=== PATIENT | female | born 2000 | race African-American/Black ===

== ENCOUNTER 2018-10-08 13:23 | Emergency (ER) | payer SELFPAY ==
[~2018-10-08] VITALS: Ht 165.1 cm; Wt 77.1 kg
[2018-10-08 13:30] VITALS: BP 127/84
--- NOTE | 2018-10-08 13:30 | NUR ---
ED Nurse Note: Patient ambulated in to ER from home due to dizziness, N/V but no D since this morning. pt is not having vomiting at this moment. Patient alert and oriented x4 and ambulatory. Skin clean and intact. Calm and cooperative. No acute distress noted at this time.
[2018-10-08] MEDS ORDERED: NKM (13:36)
[2018-10-08] MEDS ORDERED: Metoclopramide 10mg/2ml Inj IVP ONE (14:00)
[2018-10-08 14:24] LABS: APPEARANCE,URINE SLIGHTLY CLOUDY; BILIRUBIN, URINE NEGATIVE (NEGATIVE); GLUCOSE, URINE (UA) NEGATIVE (NEGATIVE); KETONES,URINE 1+ (NEGATIVE); LEUKOCYTE ESTERASE ,URINE 1+ (NEGATIVE); NITRITE,URINE POSITIVE (NEGATIVE); PH,URINE 6 (4.5-8.0); PROTEIN,URINE 2+ (NEGATIVE); UROBILINOGEN,URINE 1 MG/DL (0.0-1.0)
[2018-10-08 14:26] LABS: BASOPHILS % (AUTO) 0.7 % (0.0-2.0); COLOR,URINE YELLOW; EOSINOPHILS % (AUTO) 0.6 % (0.0-3.0); HEMATOCRIT 36.7 % (37.0-47.0); HEMOGLOBIN 11.7 G/DL (12.0-16.0); LYMPHOCYTES % (AUTO) 25.5 % (20.0-45.0); MEAN CORPUSCULAR VOLUME 90 FL (80-99); MONOCYTES % (AUTO) 13.9 % (1.0-10.0); NEUTROPHILS % (AUTO) 59.3 % (45.0-75.0); PLATELET COUNT 232 K/UL (150-450); RED BLOOD COUNT 4.06 M/UL (4.20-5.40); RED CELL DISTRIBUTION WIDTH 13.2 % (11.6-14.8); WHITE BLOOD COUNT 6.1 K/UL (4.8-10.8)
[2018-10-08 14:45] LABS: ANION GAP 7 mmol/L (5-15); BLOOD UREA NITROGEN 12 mg/dL (7-18); CALCIUM 8.6 MG/DL (8.5-10.1); CARBON DIOXIDE 27 MMOL/L (21-32); CHLORIDE 107 MMOL/L (98-107); CREATININE 0.8 MG/DL (0.55-1.30); POTASSIUM 3.6 MMOL/L (3.5-5.1); SODIUM 140 MMOL/L (136-145)
[2018-10-08 14:50] LABS: ALANINE AMINOTRANSFERASE 12 U/L (12-78); ALBUMIN 3.5 G/DL (3.4-5.0); ALKALINE PHOSPHATASE 57 U/L (46-116); ASPARTATE AMINO TRANSFERASE 13 U/L (15-37); BILIRUBIN,TOTAL 0.3 MG/DL (0.2-1.0)
--- NOTE | 2018-10-08 14:57 | Emergency Room Report ---
History of Present Illness General Chief Complaint: Vomiting Source: Patient Present Illness HPI 17-year-old female with no significant past medical history here complaining of 1 day of multiple bouts of nonbloody emesis, and epigastric pain. Denies diarrhea and constipation. Denies fever and chills, denies exposure to any new food or alcohol intake. Denies drug use. Complains of urinary frequency however denies dysuria and hematuria. Last menstrual period was over a month ago raises concerns about possible . Patient does not use any control. Denies chest pain, shortness of breath, palpitation, and all other associated symptoms. Has not taken medication for symptom relief. Allergies: Coded Allergies: No Known Allergies (Unverified , 10/08/18) Patient History Past Medical History: see triage record Past Surgical History: unable to obtain Pertinent Family History: none Last Menstrual Period: 08/20/18 Now: No Immunizations: UTD Reviewed Nursing Documentation: PMH: Agreed; PSxH: Agreed Nursing Documentation-PMH Past Medical History: No Stated History Review of Systems All Other Systems: negative except mentioned in HPI Physical Exam Vital Signs Date Time Temp Pulse Resp B/P (MAP) Pulse Ox O2 Delivery O2 Flow Rate FiO2 10/08/18 13:30 78 14 Room Air 10/08/18 13:30 98.0 127/84 98 Sp02 EP Interpretation: reviewed, normal General Appearance: no apparent distress, alert, GCS 15, non-toxic Head: normocephalic, atraumatic Eyes: bilateral eye normal inspection, bilateral eye PERRL ENT: hearing grossly normal, normal pharynx, no angioedema, normal voice Neck: full range of motion, supple/symm/no masses Respiratory: chest non-tender, lungs clear, normal breath sounds, speaking full sentences Cardiovascular #1: regular rate, rhythm, no edema, no murmur Gastrointestinal: normal inspection, non tender, soft, no mass, no organomegaly , no bruit, other - Negative McBurney's and Rovsing's Genitourinary: no CVA tenderness Musculoskeletal: back normal, gait/station normal, normal range of motion, non- tender Neurologic: alert, oriented x3, responsive, motor strength/tone normal, sensory intact, speech normal Psychiatric: judgement/insight normal, memory normal, mood/affect normal, no suicidal/homicidal ideation Skin: no rash Lymphatic: no adenopathy Medical Decision Making PA Attestation Diagnosis and treatment plans were reviewed and discussed with my supervising physician Dr. Adam Diagnostic Impression: Primary Impression: UTI (urinary tract infection) Additional Impression: Vomiting ER Course 17-year-old female with no significant past medical history here complaining of 1 day of multiple bouts of nonbloody emesis, and epigastric pain. Denies diarrhea and constipation. Denies fever and chills, denies exposure to any new food or alcohol intake. Denies drug use. Complains of urinary frequency however denies dysuria and hematuria. Last menstrual period was over a month ago raises concerns about possible . Patient does not use any control. Denies chest pain, shortness of breath, palpitation, and all other associated symptoms. Has not taken medication for symptom relief. Ddx considered but are not limited to: UTI, pyelonephritis, urinary incontinence , prolapsed bladder Vital signs: are WNL, pt. is afebrile H&PE are most consistent with: UTI, vomiting secondary to viral infection ORDERS: UA, urine , CBC, CMP, Zofran, Macrobid ED INTERVENTIONS: NS bolus, Reglan, Pepcid DISCHARGE: At this time pt. is stable for d/c to home. Will provide printed patient care instructions, and any necessary prescriptions. Care plan and follow up instructions have been discussed with the patient prior to discharge. Take medication as directed follow-up with her primary care provider worsening symptoms return to the emergency room EKG Diagnostic Results Rate: normal Rhythm: NSR ST Segments: no acute changes Last Vital Signs Date Time Temp Pulse Resp B/P (MAP) Pulse Ox O2 Delivery O2 Flow Rate FiO2 10/08/18 13:33 99.1 115 19 92/49 (63) 97 Room Air Disposition: HOME, SELF-CARE Condition: Stable Scripts Ondansetron (Zofran) 4 Mg Tablet 4 MG ORAL Q6H PRN for Nausea & Vomiting, #12 TAB Prov: Beto Fried 10/08/18 Doxycycline Hyclate (DOXYCYCLINE HYCLATE) 100 Mg Tablet 100 MG PO BID for 7 Days, #14 TAB Prov: Beto Fried 10/08/18 Referrals: NOT CHOSEN IPA/,REFERRING (PCP) Patient Instructions: Nausea and Vomiting, Adult, Urinary Tract Infection, Easy -to-Read Additional Instructions: Take medication as directed follow-up with your primary care provider if worsening symptoms return to the emergency room Beto Fried Oct 08, 2018 14:57
[2018-10-08] MEDS ORDERED: DOXYCYCLINE HY100 M6 PO (14:58)
[2018-10-08] MEDS ORDERED: ZOFRAN4 M1 ORAL (14:58)
[2018-10-08] MEDS ORDERED: Lidocaine 1% MPF 10mg/ml 5ml INJ ONE (15:00)
[2018-10-08 15:10] VITALS: BP 101/76
--- NOTE | 2018-10-08 15:11 | NUR ---
ER DISCHARGE NOTE: Patient is cleared to be discharged per ERPA, pt is aox4, on room air, with stable vital signs. pt was given dc and prescription instructions, pt was able to verbalize understanding, pt id band and iv site removed without complications. pt is able to ambulate with steady gait. pt took all belongings.
--- NOTE | 2018-10-09 11:04 | Cardiology Report ---
APPROVED REPORT EKG Measurement Heart [id number] Normal sinus rhythm with sinus arrhythmia Possible Left atrial enlargement Borderline ECG
== END 2018-10-08 15:12 | disposition home or self-care (01) ==
LOC: EMR 13:46
DX: N39.0 Urinary tract infection, site not specified (principal); R11.10 Vomiting, unspecified
CPT/HCPCS: 36415; 80053; 81001; 81025; 85025; 87086; 87491; 87590; 93005; 96361; 96372; 96374; 96375; 99284; J0696; J2765

== ENCOUNTER 2019-02-07 16:52 | Emergency (ER) | payer MEDICAID ==
[~2019-02-07] VITALS: Ht 167.6 cm; Wt 77.1 kg
[~2019-02-07 16:52] MED LIST: DOXYCYCLINE HY100 M6 PO; NITROFURANTOIN100 M2 ORAL; NKM; ZOFRAN4 M1 ORAL
[2019-02-07 17:08] VITALS: BP 105/66
--- NOTE | 2019-02-07 17:32 | Emergency Room Report ---
History of Present Illness General Chief Complaint: Abdominal Pain Source: Patient Present Illness HPI 18 YO Female presents to the ED c/o abdominal pain with x 3 days right adnexal area with radiation toward the back. Pt. reports symptoms are intermittent. She reports two positive urine tests. She states she has not had US performed yet. She cannot remember what her LMP is. She is with 2 previous normal vaginal deliveries without complication, and a recent pharmacological . She denies fevers or chills. She denies constipation or diarrhea. She denies Nausea or vomiting. She denies vaginal bleeding or d/c. She reports being up moving around exacerbates her symptoms. She denies urinary frequency, hematuria, dysuria or urgency. She denies history of renal calculi she states she was told in the past that she has had an ovarian cyst. No other significant past medical history. Patient states she is not currently taking vitamins. Pt. reports she is blood type O positive. Allergies: Coded Allergies: No Known Allergies (Unverified , 10/08/18) Patient History Past Medical History: see triage record Past Surgical History: none Pertinent Family History: none Now: Yes Reviewed Nursing Documentation: PMH: Agreed; PSxH: Agreed Nursing Documentation-PMH Past Medical History: No Stated History Review of Systems All Other Systems: negative except mentioned in HPI Physical Exam Vital Signs Date Time Temp Pulse Resp B/P (MAP) Pulse Ox O2 Delivery O2 Flow Rate FiO2 02/07/19 17:01 98.2 79 19 105/66 (79) 98 Room Air Sp02 EP Interpretation: reviewed, normal General Appearance: no apparent distress, alert, GCS 15, non-toxic Head: normocephalic, atraumatic Eyes: bilateral eye normal inspection, bilateral eye PERRL ENT: hearing grossly normal, normal voice Neck: full range of motion Respiratory: lungs clear, normal breath sounds, speaking full sentences Cardiovascular #1: regular rate, rhythm Gastrointestinal: normal bowel sounds, soft, non-distended, no guarding, other - no rebound. right adnexal ttp, mid lower abdominal pain. no macburny's tenderness. Rectal: deferred Genitourinary: normal inspection, no CVA tenderness, other - TTP to the right adnexa, and mid-uterine area. Musculoskeletal: back normal, normal range of motion, gait/station normal, non- tender Neurologic: alert, motor strength/tone normal, oriented x3, sensory intact, responsive, speech normal Psychiatric: judgement/insight normal Lymphatic: no adenopathy Medical Decision Making PA Attestation Dr. Souza is my supervising Physician whom patient management has been discussed with. Diagnostic Impression: Primary Impression: Hemorrhagic cyst of left ovary Additional Impressions: Ovarian cyst affecting in first trimester, antepartum Abdominal pain during in first trimester Threatened miscarriage in early ER Course 18 YO Female presents to the ED c/o abdominal pain with x 3 days right adnexal area with radiation toward the back. Pt. reports symptoms are intermittent. She reports two positive urine tests. She states she has not had US performed yet. She cannot remember what her LMP is. She is with 2 previous normal vaginal deliveries without complication, and a recent pharmacological . She denies fevers or chills. She denies constipation or diarrhea. She denies Nausea or vomiting. She denies vaginal bleeding or d/c. She reports being up moving around exacerbates her symptoms. She denies urinary frequency, hematuria, dysuria or urgency. She denies history of renal calculi she states she was told in the past that she has had an ovarian cyst. No other significant past medical history. Patient states she is not currently taking vitamins. Pt. reports she is blood type O positive. Ddx considered but are not limited to: , ectopic ,Spontaneous , Ovarian torsion, Ovarian cyst. PID, acute appendicitis, gall stones. Vital signs: are WNL, pt. is afebrile H&PE are most consistent with: abdominal pain during early . Pt. NAD, non-toxic in appearance. ORDERS: -Urine hcg- Positive -Serum Hcg Quant: 6529 - CBC, BMP: WNL -Lipase: WNL -Pelvic US complete- 9mm gestational sac. free fluid and 6cm left ovarian cyst. ED INTERVENTIONS: None at this time. - 4mg Zofran -1 Liter NS. DISCHARGE: At this time pt. is stable for d/c to home. Will provide printed patient care instructions, and any necessary prescriptions. Care plan and follow up instructions have been discussed with the patient prior to discharge. Labs Test 02/07/19 17:15 White Blood Count 8.9 K/UL (4.8-10.8) Red Blood Count 4.39 M/UL (4.20-5.40) Hemoglobin 12.6 G/DL (12.0-16.0) Hematocrit 37.5 % (37.0-47.0) Mean Corpuscular Volume 85 FL (80-99) Mean Corpuscular Hemoglobin 28.6 PG (27.0-31.0) Mean Corpuscular Hemoglobin Concent 33.5 G/DL (32.0-36.0) Red Cell Distribution Width 13.3 % (11.6-14.8) Platelet Count 287 K/UL (150-450) Mean Platelet Volume 6.2 FL (6.5-10.1) Neutrophils (%) (Auto) 51.1 % (45.0-75.0) Lymphocytes (%) (Auto) 38.0 % (20.0-45.0) Monocytes (%) (Auto) 7.4 % (1.0-10.0) Eosinophils (%) (Auto) 2.3 % (0.0-3.0) Basophils (%) (Auto) 1.2 % (0.0-2.0) Urine Color Pale yellow Urine Appearance Clear Urine pH 6 (4.5-8.0) Urine Specific [place] 1.020 (1.005-1.035) Urine Protein Negative (NEGATIVE) Urine Glucose (UA) Negative (NEGATIVE) Urine Ketones Negative (NEGATIVE) Urine Blood Negative (NEGATIVE) Urine Nitrite Negative (NEGATIVE) Urine Bilirubin Negative (NEGATIVE) Urine Urobilinogen Normal MG/DL (0.0-1.0) Urine Leukocyte Esterase Negative (NEGATIVE) Sodium Level 139 MMOL/L (136-145) Potassium Level 3.7 MMOL/L (3.5-5.1) Chloride Level 104 MMOL/L (98-107) Carbon Dioxide Level 27 MMOL/L (21-32) Anion Gap 8 mmol/L (5-15) Blood Urea Nitrogen 13 mg/dL (7-18) Creatinine 0.8 MG/DL (0.55-1.30) Estimat Glomerular Filtration Rate > 60 mL/min (>60) Glucose Level 115 MG/DL (74-106) Calcium Level 9.1 MG/DL (8.5-10.1) Total Bilirubin 0.2 MG/DL (0.2-1.0) Aspartate Amino Transf (AST/SGOT) 10 U/L (15-37) Alanine Aminotransferase (ALT/SGPT) 15 U/L (12-78) Alkaline Phosphatase 52 U/L (46-116) Total Protein 7.3 G/DL (6.4-8.2) Albumin 3.5 G/DL (3.4-5.0) Globulin 3.8 g/dL Albumin/Globulin Ratio 0.9 (1.0-2.7) Lipase 127 U/L (73-393) Human Chorionic Gonadotropin, Quant 6529 mIU/mL (1-6) CT/MRI/US Diagnostic Results CT/MRI/US Diagnostic Results : Imaging Test Ordered: OB US Impression "Gestational sac with no pole, too small to accurately determine gestation. Implantation bleeding noted-small. Cervical nabothian cyst. Large 6.5 cm left ovarian cyst. Free fluid adjacent to the gestational sac in the endometrium, and in the cul-de-sac." Per official radiology report- Please see report for specific details. Last Vital Signs Date Time Temp Pulse Resp B/P (MAP) Pulse Ox O2 Delivery O2 Flow Rate FiO2 02/07/19 17:08 79 19 Room Air 02/07/19 17:08 98.2 105/66 98 Disposition: HOME, SELF-CARE Condition: Stable Scripts Acetaminophen* (TYLENOL EXTRA STRENGTH*) 500 Mg Tablet 500 MG ORAL Q6H, #30 TAB 0 Refills Prov: Tracy Guillen 02/07/19 Vit #91/Fe Fum/Fa/Dha ( + DHA COMBO PACK) 1 Each Combo..pkg 1 EACH PO DAILY, #1 PACK 3 Refills Prov: Tracy Guillen 02/07/19 Referrals: [facility] Patient Instructions: Abdominal Pain During Additional Instructions: Take medications as directed. Follow up with a OBGYN within 3 days, even if your symptoms have resolved. Return sooner to ED if new symptoms occur, or current symptoms become worse. - Please note that this Emergency Department Report was dictated using [employer] worker foreman technology software, occasionally this can lead to erroneous entry secondary to interpretation by the dictation equipment. Tracy Guillen Feb 07, 2019 17:32
--- NOTE | 2019-02-07 17:34 | NUR ---
ED Nurse Note:urine and blood sent to labs
[2019-02-07 17:35] LABS: APPEARANCE,URINE CLEAR; BASOPHILS % (AUTO) 1.2 % (0.0-2.0); BILIRUBIN, URINE NEGATIVE (NEGATIVE); COLOR,URINE PALE YELLOW; EOSINOPHILS % (AUTO) 2.3 % (0.0-3.0); GLUCOSE, URINE (UA) NEGATIVE (NEGATIVE); HEMATOCRIT 37.5 % (37.0-47.0); HEMOGLOBIN 12.6 G/DL (12.0-16.0); KETONES,URINE NEGATIVE (NEGATIVE); LEUKOCYTE ESTERASE ,URINE NEGATIVE (NEGATIVE); MEAN CORPUSCULAR VOLUME 85 FL (80-99); MONOCYTES % (AUTO) 7.4 % (1.0-10.0); NEUTROPHILS % (AUTO) 51.1 % (45.0-75.0); NITRITE,URINE NEGATIVE (NEGATIVE); PH,URINE 6 (4.5-8.0); PLATELET COUNT 287 K/UL (150-450); PROTEIN,URINE NEGATIVE (NEGATIVE); RED BLOOD COUNT 4.39 M/UL (4.20-5.40); RED CELL DISTRIBUTION WIDTH 13.3 % (11.6-14.8); UROBILINOGEN,URINE NORMAL MG/DL (0.0-1.0); WHITE BLOOD COUNT 8.9 K/UL (4.8-10.8)
--- NOTE | 2019-02-07 17:37 | NUR ---
ED Nurse Note:pt. went to U/S
[2019-02-07 17:50] LABS: ALANINE AMINOTRANSFERASE 15 U/L (12-78); ALBUMIN 3.5 G/DL (3.4-5.0); ALBUMIN/GLOBULIN RATIO 0.9 (1.0-2.7); ALKALINE PHOSPHATASE 52 U/L (46-116); ANION GAP 8 mmol/L (5-15); ASPARTATE AMINO TRANSFERASE 10 U/L (15-37); BILIRUBIN,TOTAL 0.2 MG/DL (0.2-1.0); BLOOD UREA NITROGEN 13 mg/dL (7-18); CALCIUM 9.1 MG/DL (8.5-10.1); CARBON DIOXIDE 27 MMOL/L (21-32); CHLORIDE 104 MMOL/L (98-107); CREATININE 0.8 MG/DL (0.55-1.30); POTASSIUM 3.7 MMOL/L (3.5-5.1); SODIUM 139 MMOL/L (136-145)
--- NOTE | 2019-02-07 18:55 | Diagnostic Imaging Report ---
Indication: Early , right adnexal pain Technique: Grayscale and duplex images of the pelvis. Doppler interrogation of the ovaries Comparison: none Findings: Uterus measures 9.1 cm length by 5.1 cm AP. Within the endometrium, there is a gestational sac. This is too small for date estimation. It does demonstrate a small yolk sac. Hypoechoic area adjacent to the sac may reflect a small subchorionic hemorrhage. No myometrial abnormality. There is a tiny cervical nabothian cyst. No myometrial abnormality. Left ovary demonstrates a 6.3 cm cyst with low-level internal echoes. The right ovary is unremarkable. Both ovaries demonstrate normal blood flow. There is trace free cul-de-sac fluid Impression: Uterine gestational sac, too small to date. heart activity not demonstrated, may indicate very early or indicate nonviable . Recommend correlation with serial beta-hCGs and follow-up sonography as indicated Evidence of small subchorionic hemorrhage 6.3 cm probably hemorrhagic left ovarian cyst Trace free cul-de-sac fluid This agrees with the preliminary interpretation provided overnight by [facility] teleradiology service.
[2019-02-07] MEDS ORDERED: PRENATAL + DHA1 EAC1 PO (19:12)
[2019-02-07] MEDS ORDERED: TYLENOL EXTRA500 MG ORAL (19:12)
[2019-02-07 19:13] VITALS: BP 110/69
--- NOTE | 2019-02-07 19:13 | NUR ---
ED Nurse Note: Received report from Mariela ORTIZ. Patient alert and oriented, verbally responsive. Not in any distress. Will cont to monitor.
[2019-02-07 19:20] VITALS: BP 110/69
--- NOTE | 2019-02-07 19:20 | NUR ---
ED Nurse Note: Pt cleared by ERPA for discharge. DC instructions was given and explained to pt and verbalized understanding of teachings. Prescription was sent electronically to the pharmacy of choice. All medical deviecs such as ID band and IV line removed. Pt is AAO x4, ambulatory and left with all personal belongings. Accompanied by s/o.
== END 2019-02-07 19:20 | disposition home or self-care (01) ==
LOC: EMR 17:44
DX: O34.80 Maternal care for other abnormalities of pelvic organs, unspecified trimester (principal); N83.202 Unspecified ovarian cyst, left side; O20.0 Threatened abortion; O26.90 Pregnancy related conditions, unspecified, unspecified trimester; R10.9 Unspecified abdominal pain; Z3A.00 Weeks of gestation of pregnancy not specified
CPT/HCPCS: 36415; 76801; 76830; 80053; 81003; 83690; 84702; 85025; Z7502; 99284

== ENCOUNTER 2019-04-30 15:11 | Emergency (ER) | payer MEDICAID, OTHER ==
[~2019-04-30] VITALS: Ht 167.6 cm; Wt 81.6 kg
[~2019-04-30 15:11] MED LIST changes: +PRENATAL + DHA1 EAC1 PO; +TYLENOL EXTRA500 MG ORAL
[2019-04-30 15:20] VITALS: BP 101/63
--- NOTE | 2019-04-30 15:20 | NUR ---
ED Nurse Note: Pt ambulated to ED d/t abdominal pain on RT lower region for 3-4 days. Pt states she's 17 weeks ; 3. Placed on bed, awaiting for ERPA.
[2019-04-30 15:53] LABS: APPEARANCE,URINE CLOUDY; BILIRUBIN, URINE NEGATIVE (NEGATIVE); COLOR,URINE PALE YELLOW; GLUCOSE, URINE (UA) NEGATIVE (NEGATIVE); KETONES,URINE NEGATIVE (NEGATIVE); LEUKOCYTE ESTERASE ,URINE 1+ (NEGATIVE); NITRITE,URINE NEGATIVE (NEGATIVE); PH,URINE 8 (4.5-8.0); PROTEIN,URINE NEGATIVE (NEGATIVE); UROBILINOGEN,URINE 1 MG/DL (0.0-1.0)
--- NOTE | 2019-04-30 16:08 | NUR ---
ED Nurse Note: ERPA at bedside.
[2019-04-30 16:11] LABS: BASOPHILS % (AUTO) 1.2 % (0.0-2.0); EOSINOPHILS % (AUTO) 1.3 % (0.0-3.0); HEMATOCRIT 35.5 % (37.0-47.0); HEMOGLOBIN 11.5 G/DL (12.0-16.0); LYMPHOCYTES % (AUTO) 29.4 % (20.0-45.0); MEAN CORPUSCULAR VOLUME 90 FL (80-99); MONOCYTES % (AUTO) 7.9 % (1.0-10.0); NEUTROPHILS % (AUTO) 60.2 % (45.0-75.0); PLATELET COUNT 239 K/UL (150-450); RED BLOOD COUNT 3.96 M/UL (4.20-5.40); RED CELL DISTRIBUTION WIDTH 14.4 % (11.6-14.8); WHITE BLOOD COUNT 8.1 K/UL (4.8-10.8)
--- NOTE | 2019-04-30 16:15 | Emergency Room Report ---
History of Present Illness General Chief Complaint: Abdominal Pain Source: Patient Present Illness HPI 18-year-old female presents to the emergency department complaining of 8/10 in severity lower abdominal pain that is constant and stretching in nature. Pt. reports she is 17wks . She was here in jan. for left sided hemorrhagic ovarian cyst. Pt. reports being told she was in [place] when she was there visiting. She does not recall what they did and does not believe she had US done. She states she never got all the results. She was just told she was and d/c'd. She reports noticing some increased in milky white vaginal d/c with out pain. She denies vaginal bleeding. She denies suspicion of STI. She denies recent abx use. She denies nausea or vomiting. She Reports she does not have and OBGYN. She is not currently taking prenatals. She reports urinary frequency. Denies dysuria, hematuria or urgency. Allergies: Coded Allergies: No Known Allergies (Unverified , 10/08/18) Patient History Past Medical History: see triage record Past Surgical History: none Pertinent Family History: none Now: Yes : 3 Para: 2 Reviewed Nursing Documentation: PMH: Agreed; PSxH: Agreed Nursing Documentation-PMH Past Medical History: No Stated History Review of Systems All Other Systems: negative except mentioned in HPI Physical Exam Vital Signs Date Time Temp Pulse Resp B/P (MAP) Pulse Ox O2 Delivery O2 Flow Rate FiO2 04/30/19 15:18 97.9 97 16 101/63 (76) 100 Room Air Sp02 EP Interpretation: reviewed, normal General Appearance: no apparent distress, alert, GCS 15, non-toxic Head: normocephalic, atraumatic Eyes: bilateral eye normal inspection, bilateral eye PERRL ENT: hearing grossly normal, normal voice Neck: full range of motion Respiratory: lungs clear, normal breath sounds, speaking full sentences Cardiovascular #1: regular rate, rhythm Gastrointestinal: normal bowel sounds, non tender, soft, non-distended, no guarding Rectal: deferred Genitourinary: normal inspection, no CVA tenderness, ext genitalia/vag normal, os closed, other - No CMT, os is closed, scant milky white d/c. Musculoskeletal: back normal, normal range of motion, gait/station normal, non- tender Neurologic: alert, motor strength/tone normal, oriented x3, sensory intact, responsive, speech normal Psychiatric: judgement/insight normal Skin: no rash Lymphatic: no adenopathy Medical Decision Making PA Attestation Dr. Edwards is my supervising Physician whom patient management has been discussed with. Diagnostic Impression: Primary Impression: UTI (urinary tract infection) during Qualified Codes: O23.41 - Unspecified infection of urinary tract in , first trimester ER Course 18-year-old female presents to the emergency department complaining of 8/10 in severity lower abdominal pain that is constant and stretching in nature. Pt. reports she is 17wks . She was here in jan. for left sided hemorrhagic ovarian cyst. Pt. reports being told she was in [place] when she was there visiting. She does not recall what they did and does not believe she had US done. She states she never got all the results. She was just told she was and d/c'd. She reports noticing some increased in milky white vaginal d/c with out pain. She denies vaginal bleeding. She denies suspicion of STI. She denies recent abx use. She denies nausea or vomiting. She Reports she does not have and OBGYN. She is not currently taking prenatals. She reports urinary frequency. Denies dysuria, hematuria or urgency. Ddx considered but are not limited to: Fibroid, ectopic , Fibroid, Spontaneous , Vital signs: are WNL, pt. is afebrile Pelvic Exam: No CMT, os is closed, scant milky white d/c. H&PE are most consistent with: abdominal pain vs UTI during early . No evidence of acute abdomen on exam. pt. NAD, non-toxic in appearance. ORDERS: -CBC:WNL CMP: WNL -Lipase: WNL -UA: POSITIVE FOR UTI -Urine hcg- Positive -Serum Hcg Quant: 28362 -Vaginal Wet mount: some bacteria, no trich, clue cells or yeast. -Pelvic US complete- normal intrauterine estimated at17 weeks, 3 days gestation with a FHR of 161. ED INTERVENTIONS: None at this time. -I do not identify an emergent condition at this time. With current presentation , pt. is stable for close outpatient follow up and conservative treatment. D/ w pt. to return promptly to ED with worsening or new symptoms.- Pt. verbalizes' understanding and agreement with proposed treatment plan.proposed treatment plan. DISCHARGE: At this time pt. is stable for d/c to home. Will provide printed patient care instructions, and any necessary prescriptions. Care plan and follow up instructions have been discussed with the patient prior to discharge. Labs Test 04/30/19 15:30 04/30/19 15:44 Urine Color Pale yellow Urine Appearance Cloudy Urine pH 8 (4.5-8.0) Urine Specific [place] 1.015 (1.005-1.035) Urine Protein Negative (NEGATIVE) Urine Glucose (UA) Negative (NEGATIVE) Urine Ketones Negative (NEGATIVE) Urine Blood Negative (NEGATIVE) Urine Nitrite Negative (NEGATIVE) Urine Bilirubin Negative (NEGATIVE) Urine Urobilinogen 1 MG/DL (0.0-1.0) Urine Leukocyte Esterase 1+ (NEGATIVE) Urine RBC 0-2 /HPF (0 - 2) Urine WBC 5-10 /HPF (0 - 2) Urine Squamous Epithelial Cells Many /LPF (NONE/OCC) Urine Amorphous Sediment Many /LPF (NONE) Urine Bacteria Moderate /HPF (NONE) Urine HCG, Qualitative Positive (NEGATIVE) White Blood Count 8.1 K/UL (4.8-10.8) Red Blood Count 3.96 M/UL (4.20-5.40) Hemoglobin 11.5 G/DL (12.0-16.0) Hematocrit 35.5 % (37.0-47.0) Mean Corpuscular Volume 90 FL (80-99) Mean Corpuscular Hemoglobin 29.1 PG (27.0-31.0) Mean Corpuscular Hemoglobin Concent 32.5 G/DL (32.0-36.0) Red Cell Distribution Width 14.4 % (11.6-14.8) Platelet Count 239 K/UL (150-450) Mean Platelet Volume 7.7 FL (6.5-10.1) Neutrophils (%) (Auto) 60.2 % (45.0-75.0) Lymphocytes (%) (Auto) 29.4 % (20.0-45.0) Monocytes (%) (Auto) 7.9 % (1.0-10.0) Eosinophils (%) (Auto) 1.3 % (0.0-3.0) Basophils (%) (Auto) 1.2 % (0.0-2.0) Sodium Level 137 MMOL/L (136-145) Potassium Level 3.7 MMOL/L (3.5-5.1) Chloride Level 104 MMOL/L (98-107) Carbon Dioxide Level 23 MMOL/L (21-32) Anion Gap 10 mmol/L (5-15) Blood Urea Nitrogen 8 mg/dL (7-18) Creatinine 0.6 MG/DL (0.55-1.30) Estimat Glomerular Filtration Rate > 60 mL/min (>60) Glucose Level 91 MG/DL (74-106) Calcium Level 9.5 MG/DL (8.5-10.1) Total Bilirubin 0.1 MG/DL (0.2-1.0) Aspartate Amino Transf (AST/SGOT) 12 U/L (15-37) Alanine Aminotransferase (ALT/SGPT) 12 U/L (12-78) Alkaline Phosphatase 47 U/L (46-116) Total Protein 6.9 G/DL (6.4-8.2) Albumin 2.8 G/DL (3.4-5.0) Globulin 4.1 g/dL Albumin/Globulin Ratio 0.7 (1.0-2.7) Lipase 98 U/L (73-393) Human Chorionic Gonadotropin, Quant 66688 mIU/mL (1-6) Last Vital Signs Date Time Temp Pulse Resp B/P (MAP) Pulse Ox O2 Delivery O2 Flow Rate FiO2 04/30/19 15:20 97 16 Room Air 04/30/19 15:20 97.9 101/63 100 Disposition: HOME, SELF-CARE Condition: Stable Scripts Vit #91/Fe Fum/Fa/Dha ( + DHA COMBO PACK) 1 Each Combo..pkg 1 EACH PO DAILY for 30 Days, #1 PACK 3 Refills Prov: Tracy Guillen 04/30/19 Cephalexin* (KEFLEX*) 500 Mg Capsule 500 MG ORAL EVERY 12 HOURS for 7 Days, #14 CAP 0 Refills Prov: Tracy Guillen 04/30/19 [facility] Patient Instructions: Urinary Tract Infection, [id number] Additional Instructions: Take medications as directed. Follow up with a Primary Care Provider in 3-5 days, even if your symptoms have resolved. --Please review list of primary care clinics, if you do not already have a primary care provider Return sooner to ED if new symptoms occur, or current symptoms become worse. - Please note that this Emergency Department Report was dictated using [email or web address] icer machine technology software, occasionally this can lead to erroneous entry secondary to interpretation by the dictation equipment. Tracy Guillen Apr 30, 2019 16:15
[2019-04-30 16:29] LABS: ANION GAP 10 mmol/L (5-15); BLOOD UREA NITROGEN 8 mg/dL (7-18); CALCIUM 9.5 MG/DL (8.5-10.1); CARBON DIOXIDE 23 MMOL/L (21-32); CHLORIDE 104 MMOL/L (98-107); CREATININE 0.6 MG/DL (0.55-1.30); POTASSIUM 3.7 MMOL/L (3.5-5.1); SODIUM 137 MMOL/L (136-145)
[2019-04-30 16:35] LABS: ALANINE AMINOTRANSFERASE 12 U/L (12-78); ALBUMIN 2.8 G/DL (3.4-5.0); ALBUMIN/GLOBULIN RATIO 0.7 (1.0-2.7); ALKALINE PHOSPHATASE 47 U/L (46-116); ASPARTATE AMINO TRANSFERASE 12 U/L (15-37); BILIRUBIN,TOTAL 0.1 MG/DL (0.2-1.0)
--- NOTE | 2019-04-30 17:36 | Diagnostic Imaging Report ---
Indication: Pelvic pain, patient Technique: Grayscale and duplex images of the uterus and fetus. Transvaginal images of the cervix not obtained, per patient preference Comparison: 02/07/2019 Findings: There is a single live intrauterine . This demonstrates positive heart activity, heart rate 161 bpm. The placenta is posterior fundal, clears the internal cervical os. The cervix is closed, endocervical canal measuring 4.7 cm in length. Grossly normal amniotic fluid volume. Estimated gestational age by average of ultrasound measurements is 17 weeks 3 days, with an estimated delivery date of 10/05/2019 Only limited assessment of the anatomy, due to early stage of and emergent nature of exam. Four-chamber heart, stomach, urinary bladder, normal spine are all demonstrated. Impression: 17 week 3 day, by average of ultrasound measurements, single live intrauterine . No unusual features This agrees with the preliminary interpretation provided overnight by [facility] teleradiology service.
[2019-04-30] MEDS ORDERED: CEPHALEXIN500 MG ORAL (18:02)
[2019-04-30] MEDS ORDERED: PRENATAL + DHA1 EAC1 PO (18:02)
[2019-04-30 18:14] VITALS: BP 101/63
--- NOTE | 2019-04-30 18:14 | NUR ---
ER DISCHARGE NOTE: Patient is cleared to be discharged per ERMD, pt is aox4, on room air, with stable vital signs. pt was given dc and prescription instructions, pt was able to verbalize understanding, pt id band and iv site removed without complications. pt is able to ambulate with steady gait. pt took all belongings.
== END 2019-04-30 18:14 | disposition home or self-care (01) ==
LOC: EMR 16:00
DX: O23.41 Unspecified infection of urinary tract in pregnancy, first trimester (principal); Z3A.17 17 weeks gestation of pregnancy
CPT/HCPCS: 36415; 76805; 76817; 80053; 81003; 81025; 83690; 84702; 85025; 87086; 87210; Z7502; 99284

== ENCOUNTER 2019-07-19 14:11 | Emergency (ER) | payer OTHER ==
[~2019-07-19] VITALS: Ht 167.6 cm; Wt 81.6 kg
[~2019-07-19 14:11] MED LIST changes: +CEPHALEXIN500 MG ORAL
--- NOTE | 2019-07-19 14:52 | Emergency Room Report ---
History of Present Illness General Chief Complaint: Pelvic Pain Source: Patient Present Illness HPI Patient is a 18-year-old female G3, P2 approximately 29 weeks who presents to the ER complaining of left flank pain for 1 week. Patient states that she started having pelvic pain today. She states that she noted that her urine was a little dark but denies any blood in her urine. She complains of nausea but denies any vomiting. She denies any fever or chills. Patient denies any chest pain or shortness of breath. She complains of decreased p.o. intake. She denies any diarrhea. She denies any abnormal vaginal discharge or bleeding. Allergies: Coded Allergies: No Known Allergies (Unverified , 10/08/18) COVID-19 Screening Contact w/high risk pt: No Recent Travel to affected area: No Experienced COVID-19 symptoms?: No COVID-19 Testing performed SEROLOGY TEACHER: No Patient History Reviewed Nursing Documentation: PMH: Agreed; PSxH: Agreed Nursing Documentation-PMH Past Medical History: No Stated History Review of Systems All Other Systems: negative except mentioned in HPI Physical Exam Vital Signs Date Time Temp Pulse Resp B/P (MAP) Pulse Ox O2 Delivery O2 Flow Rate FiO2 07/19/19 14:27 99.0 107 16 103/57 (72) 97 Room Air Sp02 EP Interpretation: reviewed, normal General Appearance: no apparent distress, alert, GCS 15, non-toxic Head: normocephalic, atraumatic Eyes: bilateral eye normal inspection, bilateral eye PERRL ENT: hearing grossly normal, normal pharynx, no angioedema, normal voice Neck: full range of motion, supple/symm/no masses Respiratory: chest non-tender, lungs clear, normal breath sounds, speaking full sentences Cardiovascular #1: no edema, tachycardia Cardiovascular #2: 2+ carotid (R), 2+ carotid (L) Gastrointestinal: other - Gravid uterus suprapubic tenderness to palpation no guarding or rebound Rectal: deferred Genitourinary: other - Left CVA tenderness Musculoskeletal: back normal, normal range of motion, no calf tenderness, gait/ station normal, non-tender Neurologic: alert, motor strength/tone normal, oriented x3, sensory intact, responsive, speech normal Psychiatric: judgement/insight normal, memory normal, mood/affect normal, no suicidal/homicidal ideation Skin: no rash Lymphatic: no adenopathy Medical Decision Making ER Course Patient's laboratory results demonstrate no elevated white blood cell count. She has anemia but does not require a blood transfusion at this time. UA demonstrates positive leukoesterase no WBCs and positive bacteria questionable contaminated urine but due to the fact that she is I have given her Rocephin. Patient given 1 L of IV fluids and Zofran. Her heart rate has improved and is now 89 bpm. She is asking for food. I discussed her ER results with her. She states that she has not had any care. I discussed the importance of care and will give her a list of local facilities. I am waiting for her ultrasound results. I discussed all of her lab findings and her work-up thus far at 4:30 PM Patient has been afebrile. Patient given oral Tylenol. On reevaluation patient is lying comfortably in bed. She tolerated p.o. She states that her pain has improved. Pelvic ultrasound demonstrates single intrauterine approximately 29 weeks and 5 days. heart rate of 157 bpm. Renal ultrasound demonstrates no acute findings specifically no hydronephrosis or hydroureter. I stressed the importance of patient having follow-up as soon as possible. I also advised the patient to monitor her symptoms for any new or worsening symptoms. After discussing risks and benefits of further diagnostics, treatment plans, as well as indications for and risks of admission , the patient is agreeable to being discharged home. I have explained that their evaluation and treatment in the emergency department today is an important step towards them achieving better health but that their evaluation today is not intended to replace further evaluation and treatment by a physician in their local clinic. I have explained that while the current findings suggest no immediate life threatening emergency they will require further evaluation and treatment by a physician of their choice in their area. They understand that it will be necessary for them to review the final reports of their ED visit with their clinic physician. We have reviewed indications for return to the Emergency Department. I have explained that additional time may need to pass and/or additional testing as an outpatient may be necessary before a definitive diagnosis can be made. They tell me they are willing to follow up as instructed within the timeframe I recommend. They appear to understand what we discussed. Additionally they understand that if they are unable to be seen by an outpatient physician they are welcome, and in fact should, return to the Emergency Department for a repeat evaluation. The patient is stable at time of discharge.. Rhythm Strip Diag. Results Rhythm Strip Time: 14:52 EP Interpretation: yes - MD sebastian Rate: 107 Rhythm: no ectopy, other - sinus tachycardia Last Vital Signs Date Time Temp Pulse Resp B/P (MAP) Pulse Ox O2 Delivery O2 Flow Rate FiO2 07/19/19 14:27 99.0 107 16 103/57 (72) 97 Room Air Disposition: HOME, SELF-CARE Condition: Stable Scripts Nitrofurantoin Monohyd/M-Cryst* (MACROBID 100 MG*) 100 Mg Capsule 100 MG ORAL EVERY 12 HOURS for 7 Days, #14 CAP Prov: Margie Nichols M.D. 07/19/19 Additional Instructions: The patient was provided with discharge instructions, notified to follow-up with a primary care doctor and or specialist in the next 24-48 hours, and to return to the ED if they have worsening of their symptoms. Please note that this report is being documented using Face[employer] technology. This can lead to erroneous entry secondary to incorrect interpretation by the dictating instrument. Margie Nichols M.D. July 19, 2019 14:52
[2019-07-19 15:31] LABS: APPEARANCE,URINE SLIGHTLY CLOUDY; BILIRUBIN, URINE NEGATIVE (NEGATIVE); COLOR,URINE PALE YELLOW; GLUCOSE, URINE (UA) NEGATIVE (NEGATIVE); KETONES,URINE NEGATIVE (NEGATIVE); LEUKOCYTE ESTERASE ,URINE 1+ (NEGATIVE); NITRITE,URINE NEGATIVE (NEGATIVE); PH,URINE 7 (4.5-8.0); PROTEIN,URINE NEGATIVE (NEGATIVE); UROBILINOGEN,URINE 1 MG/DL (0.0-1.0)
[2019-07-19 15:32] LABS: BASOPHILS % (AUTO) 0.5 % (0.0-2.0); EOSINOPHILS % (AUTO) 0.8 % (0.0-3.0); HEMATOCRIT 30.5 % (37.0-47.0); HEMOGLOBIN 9.6 G/DL (12.0-16.0); LYMPHOCYTES % (AUTO) 18.7 % (20.0-45.0); MEAN CORPUSCULAR VOLUME 85 FL (80-99); MONOCYTES % (AUTO) 9.4 % (1.0-10.0); NEUTROPHILS % (AUTO) 70.7 % (45.0-75.0); PLATELET COUNT 247 K/UL (150-450); RED BLOOD COUNT 3.59 M/UL (4.20-5.40); RED CELL DISTRIBUTION WIDTH 14.3 % (11.6-14.8); WHITE BLOOD COUNT 10.1 K/UL (4.8-10.8)
[2019-07-19 15:34] LABS: INR 0.9 (0.9-1.1)
[2019-07-19 15:38] LABS: ANION GAP 11 mmol/L (5-15); BLOOD UREA NITROGEN 8 mg/dL (7-18); CARBON DIOXIDE 23 MMOL/L (21-32); CHLORIDE 103 MMOL/L (98-107); CREATININE 0.6 MG/DL (0.55-1.30); POTASSIUM 3.8 MMOL/L (3.5-5.1); SODIUM 137 MMOL/L (136-145)
[2019-07-19 15:44] LABS: ALANINE AMINOTRANSFERASE 12 U/L (12-78); ALBUMIN 2.6 G/DL (3.4-5.0); ALBUMIN/GLOBULIN RATIO 0.6 (1.0-2.7); ALKALINE PHOSPHATASE 80 U/L (46-116); ASPARTATE AMINO TRANSFERASE 13 U/L (15-37); BILIRUBIN,TOTAL 0.2 MG/DL (0.2-1.0)
[2019-07-19 15:59] VITALS: BP 103/57
[2019-07-19] MEDS ORDERED: cefTRIAXone 1 GM in NS 55 ML IVPB ONE (16:30)
--- NOTE | 2019-07-19 17:12 | Diagnostic Imaging Report ---
EXAM: US Retroperitoneal Complete, Renal CLINICAL HISTORY: PAIN TECHNIQUE: Real-time complete ultrasound of the retroperitoneum with image documentation. COMPARISON: No relevant prior studies available. FINDINGS: Right kidney: Right kidney 12.1 cm No stones. No hydronephrosis. Left kidney: Left kidney 11.5 cm No stones. No hydronephrosis. Bladder: Unremarkable as visualized. Other findings: No significant postvoid residual. IMPRESSION: 1. No acute abnormality definitively identified to account for patient presentation. 2. Unremarkable study.
--- NOTE | 2019-07-19 17:16 | Diagnostic Imaging Report ---
EXAM: US Second or Third Trimester , Transabdominal CLINICAL HISTORY: PAIN TECHNIQUE: Real-time transabdominal obstetrical ultrasound of the maternal pelvis and a second or third trimester with image documentation. COMPARISON: 04/30/2019 FINDINGS: Fetus: Single viable intrauterine gestation consistent with 29 week 5 day . Heart rate: heart rate 157 bpm Presentation: No acute abnormality identified to account for patient presentation. Transverse lie. Placenta: Unremarkable. No abruption. Amniotic fluid: Unremarkable. Anatomy: Intracranial/face anatomy not seen. Spinal anatomy not seen. Abdominal anatomy not seen. Extremities not seen. Four-chamber heart not seen. Umbilical cord not seen. BIOMETRICS Gestational age: See above EDC: EDC by ultrasound 09/29/2019. GARRICK: See above EFW: 1420 g BPD: 75 mm, 30 weeks 2 days HC: 277 mm, 30 weeks 2 days AC: 259 mm, 30 weeks 1 day FL: 53 mm, 28 weeks 2 days MATERNAL: Uterus: Unremarkable. No myometrial mass. Cervix: Cervix 4.2 cm Free fluid: No free fluid. Other findings: EGA by ultrasound 29 weeks 5 days. IMPRESSION: 1. Single viable intrauterine gestation consistent with 29 week 5 day . 2. EDC by ultrasound 09/29/2019. 3. No acute abnormality identified to account for patient presentation. 4. Otherwise unremarkable study.
[2019-07-19] MEDS ORDERED: NITROFURANTOIN100 M2 ORAL (17:21)
[2019-07-19 17:35] VITALS: BP 108/75
== END 2019-07-19 17:38 | disposition home or self-care (01) ==
LOC: EMR 14:58
DX: O26.93 Pregnancy related conditions, unspecified, third trimester (principal); Z3A.29 29 weeks gestation of pregnancy; R10.2 Pelvic and perineal pain; R11.0 Nausea
CPT/HCPCS: 36415; 76770; 76805; 80053; 80307; 81003; 83605; 83690; 83735; 84702; 85025; 85610; 85730; 86850; 86900; 86901; 87040; 87086; 87181; 96361; 96365; 96375; J0696; J2405; J7030; Z7502; 99284